=== PATIENT | male | born 1995 | race American Indian/Alaskan Native ===

== ENCOUNTER 2021-02-01 12:10 | Emergency (ER) | payer BC ==
--- NOTE | 2021-02-01 13:17 | XRay Report ---
XR chest routine 2V INDICATION / CLINICAL INFORMATION: Cp and SOB. COMPARISON: None available. FINDINGS: SUPPORT DEVICES: None. HEART /PULMONARY VASCULATURE: No significant abnormality. LUNGS / PLEURA: No significant pulmonary or pleural abnormality. No pneumothorax. ADDITIONAL FINDINGS: No significant additional findings. IMPRESSION: 1. No acute findings. Signer Name: Devin Mckeon MD Signed: 02/01/2021 1:13 PM Workstation Name: [id number]
[2021-02-01 13:40] LABS: Basophils # (Auto) 0.1 K/mm3 (0.0-0.1); Basophils % (Auto) 0.6 % (0.0-1.8); Hematocrit 46.4 % (35.5-45.6); Hemoglobin 14.8 gm/dl (11.8-15.2); Lymphocytes # (Auto) 0.2 K/mm3 (1.2-5.4); Lymphocytes % (Auto) 2.5 % (13.4-35.0); Mean Corpuscular HGB Conc 32 % (32-34); Mean Corpuscular Volume 75 fl (84-94); Monocytes # (Auto) 0.9 K/mm3 (0.0-0.8); Monocytes % (Auto) 10.7 % (0.0-7.3); Platelet Count 191 K/mm3 (140-440); Red Cell Distribution Width 14.2 % (13.2-15.2)
[2021-02-01] MEDS ORDERED: IBUPROFEN 600 MG TAB PO ONE (13:49)
--- NOTE | 2021-02-01 13:49 | Emergency Department Report ---
ED Chest Pain HPI - General Chief Complaint: Chest Pain Stated Complaint: CHEST PAIN Time Seen by Provider: 02/01/21 12:46 Source: patient Mode of arrival: Ambulatory Limitations: No Limitations - History of Present Illness Initial Comments: Patient is a 25-year-old male presents emergency room complaints of left-sided chest pain that began yesterday. He states that he feels the pain whenever he takes a deep breath and it hurts to inspire. He has associated shortness of breath. He states he also feels pain in his left upper back. He states he went to get a COVID-19 test today and reports it was negative. He states he has an occasional cough. He denies any leg pain, leg swelling, nausea, vomiting, diarrhea, fever, any other symptoms. No past medical history. No allergies to medications. He denies any recent travel, recent surgeries, sick contacts. He endorses marijuana use. He denies any family cardiac history or family history of DVT/PE. Severity scale (0 -10): 8 - Related Data Previous Rx's Medication Instructions Recorded Last Taken Type Ibuprofen [Motrin 600 MG tab] 600 mg PO Q8H PRN #20 tablet 02/01/21 Unknown Rx Prednisone [predniSONE 10 mg 10 mg PO .TAPER #1 tab.ds.pk 02/01/21 Unknown Rx (6-Day Pack, 21 Tabs)] Allergies Allergy/AdvReac Type Severity Reaction Status Date / Time No Known Allergies Allergy Unverified 02/01/21 13:00 Heart Score - HEART Score History: Slightly suspicious EKG: Normal Age: < 45 Risk factors: No known risk factors Troponin: < normal limit HEART Score: 0 - EKG Read Time Time EKG Completed: 12:22 EKG Read Time: 12:26 ED Review of Systems ROS: Stated complaint: CHEST PAIN Other details as noted in HPI ED Past Medical Hx - Medications Home Medications: Home Medications Medication Instructions Recorded Confirmed Last Taken Type Ibuprofen [Motrin 600 MG tab] 600 mg PO Q8H PRN #20 tablet 02/01/21 Unknown Rx Prednisone [predniSONE 10 mg 10 mg PO .TAPER #1 tab.ds.pk 02/01/21 Unknown Rx (6-Day Pack, 21 Tabs)] ED Physical Exam - General Limitations: No Limitations ED Course Vital Signs 02/01/21 02/01/21 02/01/21 12:57 15:09 15:30 Temperature 99.9 F H 97.8 F Pulse Rate 98 H 82 80 Respiratory 16 12 18 Rate Blood Pressure 117/80 129/74 130/65 [Left] O2 Sat by Pulse 99 100 100 Oximetry ED Medical Decision Making - Lab Data Result diagrams: 02/01/21 13:17 02/01/21 13:17 Lab Results 02/01/21 02/01/21 02/01/21 Range/Units 13:17 13:17 13:17 WBC 8.4 (4.5-11.0) K/mm3 RBC 6.20 H (3.65-5.03) M/mm3 Hgb 14.8 (11.8-15.2) gm/dl Hct 46.4 H (35.5-45.6) % MCV 75 L (84-94) fl MCH 24 L (28-32) pg MCHC 32 (32-34) % RDW 14.2 (13.2-15.2) % Plt Count 191 (140-440) K/mm3 Lymph % (Auto) 2.5 L (13.4-35.0) % [place] % (Auto) 10.7 H (0.0-7.3) % Eos % (Auto) 0.0 (0.0-4.3) % Baso % (Auto) 0.6 (0.0-1.8) % Lymph # (Auto) 0.2 L (1.2-5.4) K/mm3 [place] # (Auto) 0.9 H (0.0-0.8) K/mm3 Eos # (Auto) 0.0 (0.0-0.4) K/mm3 Baso # (Auto) 0.1 (0.0-0.1) K/mm3 Seg Neutrophils % 86.2 H (40.0-70.0) % Seg Neutrophils # 7.2 (1.8-7.7) K/mm3 D-Dimer 136.10 (0-234) ng/mlDDU Sodium 139 (137-145) mmol/L Potassium 4.4 (3.6-5.0) mmol/L Chloride 102.0 (98-107) mmol/L Carbon Dioxide 28 (22-30) mmol/L Anion Gap 13 mmol/L BUN 13 (9-20) mg/dL Creatinine 1.0 (0.8-1.3) mg/dL Estimated GFR > 60 ml/min BUN/Creatinine Ratio 13 % Glucose 95 (75-100) mg/dL Calcium 9.6 (8.4-10.2) mg/dL Total Bilirubin 0.50 (0.1-1.2) mg/dL AST 16 (5-40) units/L ALT 14 (7-56) units/L Alkaline Phosphatase 53 (35-129) units/L Troponin T < 0.010 (0.00-0.029) ng/mL Total Protein 7.8 (6.3-8.2) g/dL Albumin 4.8 (3.9-5) g/dL Albumin/Globulin Ratio 1.6 % Vital Signs 02/01/21 02/01/21 02/01/21 12:57 15:09 15:30 Temperature 99.9 F H 97.8 F Pulse Rate 98 H 82 80 Respiratory 16 12 18 Rate Blood Pressure 117/80 129/74 130/65 [Left] O2 Sat by Pulse 99 100 100 Oximetry - EKG Data EKG shows normal: sinus rhythm, axis, intervals, QRS complexes Rate: normal - EKG Data 02/01/21 16:04 ST elevation from normal early repolarization No STEMI - Radiology Data Radiology results: report reviewed Ordering Physician: EVELYN MORALES Date of Service: 02/01/21 Procedure(s): XR chest routine 2V Accession Number(s): [id number] cc: EVELYN MORALES Fluoro Time In Minutes: XR chest routine 2V INDICATION / CLINICAL INFORMATION: Cp and SOB. COMPARISON: None available. FINDINGS: SUPPORT DEVICES: None. HEART /PULMONARY VASCULATURE: No significant abnormality. LUNGS / PLEURA: No significant pulmonary or pleural abnormality. No pneumothorax. ADDITIONAL FINDINGS: No significant additional findings. IMPRESSION: 1. No acute findings. Signer Name: Mina Solomon MD Signed: 02/01/2021 1:13 PM Workstation Name: [id number] Transcribed By: JORJE Dictated By: MINA SOLOMON MD Electronically Authenticated By: MINA SOLOMON MD Signed Date/Time: 02/01/211312 DD/ 12 TD/TT: - Medical Decision Making Patient is a 25-year-old male presents emergency room complaints of left-sided chest pain that began yesterday. He states that he feels the pain whenever he takes a deep breath and it hurts to inspire. He has associated shortness of breath. He states he also feels pain in his left upper back. He states he went to get a COVID-19 test today and reports it was negative. He states he has an occasional cough. He denies any leg pain, leg swelling, nausea, vomiting, diarrhea, fever, any other symptoms. No past medical history. No allergies to medications. He denies any recent travel, recent surgeries, sick contacts. He endorses marijuana use. He denies any family cardiac history or family history of DVT/PE. Initial vitals with low-grade temperature which improved upon repeat, otherwise stable, no tachycardia, no hypoxia. EKG with normal early repolarization, otherwise normal. Labs are normal. Troponin is negative. D- dimer is negative. PERC criteria negative for PE, PE unlikely. Heart score is 0, low risk for cardiac event, troponin is negative, EKG is stable, do not raymond pect ACS at this time. Chest x-ray: 1. No acute findings. Symptoms likely appear consistent with pleuritis versus costochondritis. Patient given prescription for medication. Advised patient Please take medication as prescribed. Follow-up with a primary care doctor. Return to emergency room for any new or worsening symptoms. May alternate Tylenol and then ibuprofen every 6-8 hours as needed for fever. Critical care attestation.: If time is entered above; I have spent that time in minutes in the direct care of this critically ill patient, excluding procedure time. ED Disposition Clinical Impression: SOB (shortness of breath) Chest pain Qualifiers: Chest pain type: chest pain on breathing Qualified Code(s): R07.1 - Chest pain on breathing Disposition: HOME / SELF CARE / HOMELESS Is pt being admited?: No Does the pt Need Aspirin: No Condition: Stable Instructions: Upper Respiratory Infection, Adult, Pleurisy Additional Instructions: Please take medication as prescribed. Follow-up with a primary care doctor. Return to emergency room for any new or worsening symptoms. May alternate Tylenol and then ibuprofen every 6-8 hours as needed for fever. Prescriptions: Ibuprofen [Motrin 600 MG tab] 600 mg PO Q8H PRN #20 tablet PRN Reason: Pain Prednisone [predniSONE 10 mg (6-Day Pack, 21 Tabs)] 10 mg PO .TAPER #1 tab.ds.pk Referrals: PRIMARY CARE, [Primary Care Provider] - 2-3 Days Time of Disposition: 14:49 Print Language: SWEDISH
[2021-02-01 14:07] LABS: Alanine Aminotransferase 14 units/L (7-56); Albumin 4.8 g/dL (3.9-5); BUN/Creatinine Ratio 13; Blood Urea Nitrogen 13 mg/dL (9-20); Calcium 9.6 mg/dL (8.4-10.2); Hemolysis Index 6
[2021-02-01 15:31] VITALS: BP 130/65
--- NOTE | 2021-02-04 09:41 | Electrocardiograph Report ---
[facility] Test Date: 2021-02-01 Test Time: 12:22:16 Pat Name: NARINDER CANDELARIO Department: Room: Gender: M Program Director Group Work: STEVIE : 1995 Requested By: VALENTINE MCDANIEL Order Number: [id number] Reading MD: Mp Diaz Measurements Intervals [place] Rate: 79 P: 65 MS: 169 QRS: 25 QRSD: 86 T: 34 QT: 363 QTc: 415 Interpretive Statements Sinus rhythm ST elev, probable normal early repol pattern No previous ECG available for comparison Electronically Signed On 02-04-2021 9:41:41 EDT by Mp Diaz
== END 2021-02-01 15:30 | disposition home or self-care (01) ==
LOC: ED 12:10
DX: R07.9 Chest pain, unspecified (principal); R06.02 Shortness of breath
CPT/HCPCS: 36415; 71046; 80053; 84484; 85025; 85379; 93005; 99284